=== PATIENT | female | born 2005 | race Caucasian/White ===

== ENCOUNTER 2025-05-25 07:21 | Inpatient (IN) | payer BC, MEDICAID ==
[2025-05-25] MEDS ORDERED: hydrALAZINE 20 MG/ML VIAL SLOW IVP PRN ×2 (07:22→08:29)
[2025-05-25] MEDS ORDERED: Diphenoxylate HCl/Atropine Tablet PO PRN (08:29)
[2025-05-25] MEDS ORDERED: Methylergonovine 0.2 MG/ML VIAL IM PRN (08:29)
[2025-05-25] MEDS ORDERED: Tranexamic Acid 1,000 MG/10 ML VIAL IVP PRN (08:29)
[2025-05-25] MEDS ORDERED: Acetaminophen 500 MG TAB PO PRN (08:29)
[2025-05-25] MEDS ORDERED: Ibuprofen 800 MG TAB PO PRN (08:29)
[2025-05-25] MEDS ORDERED: Ondansetron PF 4 MG/2 ML Vial IVP PRN ×2 (08:29→23:45)
[2025-05-25] MEDS ORDERED: Lidocaine 1% (PF) 30 ML VIAL SC PRN (08:29)
[2025-05-25] MEDS ORDERED: Oxytocin 30 units/NS 500 ML 500 ML IV SCH (08:30)
[2025-05-25 08:40] VITALS: BMI 28.5
[2025-05-25] MEDS: Oxytocin 30 units/NS 500 ML 500 ML IV SCH (09:18)
[2025-05-25 09:20] LABS: Hematocrit 38.4 % (34.9-44.5); Hemoglobin 13.1 g/dL (12.0-15.5); Mean Corpuscular Hemoglobin 30.9 pg (27.0-33.0); Mean Corpuscular Volume 90.6 fL (81.6-98.3); Platelet Count 131 10x3/uL (150-450); Red Blood Cell (RBC) Count 4.24 10x6/uL (3.90-5.03); White Blood Cell (WBC) Count 9.99 10x3/uL (3.5-10.5)
[2025-05-25 09:42] LABS: Hep B Surf Ag - L&D Non-Reactive S/CO (NonReactive)
[2025-05-25 09:44] LABS: Syphilis Antibody Index 0.06 S/CO (<1.00 Non-Reactive)
[2025-05-25] MEDS: fentaNYL/Ropivacaine Epidural 100 ML ONE (12:39)
[2025-05-25] MEDS ORDERED: diphenhydrAMINE 50 MG/ML VIAL IVP PRN ×2 (12:59→23:45)
[2025-05-25] MEDS ORDERED: Acetaminophen 325 MG TAB PO PRN (12:59)
[2025-05-25] MEDS ORDERED: Communication Order-Pharmacy FS SCH ×2 (13:00→23:45)
[2025-05-25] MEDS ORDERED: fentaNYL 2 mcg/Ropivacaine 0.2% Epidural 100 ML CADD EPIDURAL SCH (13:00)
[2025-05-25] MEDS: Ondansetron PF 4 MG/2 ML Vial IVP PRN (17:41)
[2025-05-25] MEDS ORDERED: Meperidine HCl/PF 25 MG (1 mL) VIAL SLOW IVP PRN (23:45)
[2025-05-25] MEDS ORDERED: Ketorolac Tromethamine 30 MG (1 mL) VIAL IVP SCH (23:45)
[2025-05-26] MEDS: Oxytocin 10 UNITS/ML VIAL ONE ×2 (01:26)
[2025-05-26] MEDS: Lidocaine 2% MPF 10 ML AMP (For Epidural Use) ONE (01:26)
[2025-05-26] MEDS: Ketorolac Tromethamine 30 MG (1 mL) VIAL ONE (01:26)
[2025-05-26] MEDS: Ondansetron PF 4 MG/2 ML Vial ONE (01:26)
[2025-05-26] MEDS: Dexamethasone 10 MG/ML VIAL ONE (01:26)
[2025-05-26] MEDS: Azithromycin 500 MG VIAL ONE (01:27)
[2025-05-26] MEDS: PHENYLEPHRINE-NS 100 MCG/ML 10 ML SYRINGE ONE (01:27)
[2025-05-26] MEDS: CEFAZOLIN 2 GM VIAL ONE (01:27)
[2025-05-26] MEDS: Ketorolac Tromethamine 30 MG (1 mL) VIAL IVP SCH ×2 (01:29→05:25)
[2025-05-26] MEDS ORDERED: Bisacodyl 10 MG SUPP PR PRN (02:01)
[2025-05-26] MEDS ORDERED: Ondansetron PF 4 MG/2 ML Vial IVP PRN (02:01)
[2025-05-26] MEDS ORDERED: diphenhydrAMINE 25 MG CAP PO PRN (02:01)
[2025-05-26] MEDS ORDERED: hydrALAZINE 20 MG/ML VIAL SLOW IVP PRN (02:01)
[2025-05-26] MEDS ORDERED: Boostrix 0.5 ML (Tdap) VIAL (>/=7 yrs of age) IM ONE (02:01)
[2025-05-26] MEDS ORDERED: Lanolin Ointment 7 GM TUBE TOP PRN (02:01)
[2025-05-26 06:08] LABS: Hematocrit 34.3 % (34.9-44.5); Hemoglobin 11.9 g/dL (12.0-15.5); Mean Corpuscular Hemoglobin 31.7 pg (27.0-33.0); Mean Corpuscular Volume 91.5 fL (81.6-98.3); Platelet Count 128 10x3/uL (150-450); Red Blood Cell (RBC) Count 3.75 10x6/uL (3.90-5.03); White Blood Cell (WBC) Count 16.46 10x3/uL (3.5-10.5)
[2025-05-26] MEDS: Ferrous Sulfate 325 MG TAB PO SCH (09:16)
[2025-05-26] MEDS ORDERED: Meperidine HCl/PF 25 MG (1 mL) VIAL IM PRN (12:45)
[2025-05-26] MEDS ORDERED: HYDROcodone/Acetaminophen 5/325 mg Tablet PO PRN (12:45)
[2025-05-26] MEDS: Simethicone Chewable 80 MG TAB PO PRN (20:57)
[2025-05-27] MEDS: HYDROcodone/Acetaminophen 5/325 mg Tablet PO PRN (04:10)
[2025-05-27] MEDS: Ibuprofen 800 MG TAB PO SCH (05:35)
[2025-05-28 19:58] VITALS: BP 108/69; TEMP 98.2
== END 2025-05-28 21:00 | disposition home or self-care (01) | DRG 787 ==
LOC: CSHLD/OP 07:21 → CSHLD 08:50 → CSHPP 05-26 02:00
PROVIDERS: ADMIT Family Medicine; ATTEND Family Medicine
PROC: 10D00Z1 Extraction of Products of Conception, Low, Open Approach (ICD-10-PCS; principal; 2025-05-25)
DX: O99.892 Other specified diseases and conditions complicating childbirth (principal); N13.30 Unspecified hydronephrosis; Z3A.40 40 weeks gestation of pregnancy; Z37.0 Single live birth
CPT/HCPCS: 36415; 51702; 85027; 86780; 86850; 86900; 86901; 87340; 99285; C1889; J1100; J1885; J2274; J2405; J2550; J2590; J3010; J7120